=== PATIENT | male | born 1955 | race Caucasian/White ===

== ENCOUNTER → 2021-03-15 | Outpatient (CLI) | payer MEDICARE ==
[~2021-03-15] MED LIST: Calcium Acetat667 MG PO; METO25ER PO; MYCO250 PO; MYCOPHENOLATE250 MG PO; PRED5 PO; PROGRAF1 M1 PO; SIMV40 PO; TACR1 PO
== END | disposition home or self-care (01) ==
LOC: LAB 12:45 → LAB SHORT 12:45
DX: D04.39 Carcinoma in situ of skin of other parts of face (principal)
CPT/HCPCS: 88305

== ENCOUNTER → 2022-02-21 | Outpatient (CLI) | payer OTHER | END | disposition home or self-care (01) | LOC: PLD 11:23 → LAB SHORT 11:23 | DX: D04.62 Carcinoma in situ of skin of left upper limb, including shoulder (principal) | CPT/HCPCS: 88305 ==

== ENCOUNTER → 2023-06-01 | Outpatient (CLI) | payer OTHER | LOC: LAB SHORT 11:59 → LAB 11:59 | DX: D04.61 Carcinoma in situ of skin of right upper limb, including shoulder (principal) | CPT/HCPCS: 88305 ==

== ENCOUNTER → 2023-12-11 | Outpatient (CLI) | payer OTHER ==
[2023-12-11 12:51] LABS: BASOPHILS ABSOLUTE AUTO 0.03 K/mm3 (0.00-0.23); BASOPHILS PERCENT AUTO 0 % (0-2); EOSINOPHILS ABSOLUTE AUTO 0.01 K/mm3 (0.00-0.68); EOSINOPHILS PERCENT AUTO 0 % (0-6); Hematocrit 44.2 % (37.0-53.0); IMMATURE GRAN ABSOLUTE AUTO 0.11 K/mm3 (0.00-0.10); IMMATURE GRAN PERCENT AUTO 1 % (0-1); LYMPHOCYTES ABSOLUTE AUTO 0.54 K/mm3 (0.84-5.20); LYMPHOCYTES PERCENT AUTO 3 % (21-46); MONOCYTES ABSOLUTE AUTO 1.87 K/mm3 (0.16-1.47); MONOCYTES PERCENT AUTO 9 % (4-13); Mean Corpuscular HGB Conc 33.9 g/dL (31.5-36.5); Mean Corpuscular Volume 97 fL (80-100); Mean Platelet Volume 10.8 fL (9.1-12.4); NEUTROPHILS ABSOLUTE AUTO 17.54 K/mm3 (1.96-9.15); NEUTROPHILS PERCENT AUTO 87 % (41-73); Platelet Count 149 K/mm3 (150-400); RDW Coefficient Variation 13.2 % (11.7-14.2); RDW Standard Deviation 47.5 fL (35.1-46.3); Red Blood Cell Count 4.55 M/mm3 (4.30-5.90)
[2023-12-11 13:03] LABS: Albumin/Globulin Ratio 0.8 (0.8-1.8); Bilirubin, Total 6.2 mg/dL (0.1-1.0); Bun/Creatinine Ratio 12.5 (12.0-20.0); Calcium, Blood 9.4 mg/dL (8.5-10.1); Creatinine, Blood 1.04 mg/dL (0.60-1.20); Globulin, Blood 3.7 g/dL (2.2-4.0); Potassium, Blood 4.6 mmol/L (3.5-5.5); Total Protein, Blood 6.7 g/dL (6.4-8.2)
== END | disposition home or self-care (01) ==
LOC: LAB SHORT 12:47 → LAB 12:47
PROVIDERS: Family Medicine
DX: R10.84 Generalized abdominal pain (principal)
CPT/HCPCS: 80053; 83690; 84484; 85025

== ENCOUNTER 2024-02-05 10:14 | Observation (INO) | payer OTHER ==
[~2024-02-05] VITALS: Ht 177.8 cm; Wt 92.3 kg
[2024-02-05 11:53] LABS: Source, Urine Clean Catch
[2024-02-05 12:05] LABS: Appearance, Urine Cloudy (Clear); Blood, Urine 1+ (Neg); Color, Urine Amber (P-Yellow); Glucose Qualitative, Urine Neg (Neg); Ketones, Urine 1+ (Neg); Leukocyte Esterase, Urine 2+ (Neg); Nitrite, Urine Pos (Neg); Protein, Urine 2+ (Neg); Urobilinogen, Urine 3+ (Normal)
[2024-02-05] MEDS ORDERED: Ketorolac Tromethamine 15mg Vial IV ONE (12:05)
[2024-02-05] MEDS ORDERED: Ondansetron HCl 2 MG / ML 2ML Vial IV ONE (12:10)
[2024-02-05] MEDS ORDERED: HYDROmorphone HCl/Pf 1MG SYR IV ONE (12:10)
[2024-02-05 12:12] LABS: BASOPHILS ABSOLUTE AUTO 0.03 K/mm3 (0.00-0.23); BASOPHILS PERCENT AUTO 0 % (0-2); EOSINOPHILS ABSOLUTE AUTO 0.01 K/mm3 (0.00-0.68); EOSINOPHILS PERCENT AUTO 0 % (0-6); Hematocrit 42.3 % (37.0-53.0); Hemoglobin 14.4 g/dL (13.5-17.5); IMMATURE GRAN ABSOLUTE AUTO 0.08 K/mm3 (0.00-0.10); IMMATURE GRAN PERCENT AUTO 1 % (0-1); LYMPHOCYTES ABSOLUTE AUTO 0.44 K/mm3 (0.84-5.20); LYMPHOCYTES PERCENT AUTO 3 % (21-46); MONOCYTES ABSOLUTE AUTO 1.35 K/mm3 (0.16-1.47); MONOCYTES PERCENT AUTO 8 % (4-13); Mean Corpuscular Volume 97 fL (80-100); Mean Platelet Volume 10.6 fL (9.1-12.4); NEUTROPHILS ABSOLUTE AUTO 14.28 K/mm3 (1.96-9.15); NEUTROPHILS PERCENT AUTO 88 % (41-73); Platelet Count 189 K/mm3 (150-400); RDW Standard Deviation 46.5 fL (35.1-46.3); Red Blood Cell Count 4.37 M/mm3 (4.30-5.90); White Blood Cell Count 16.19 K/mm3 (4.00-11.30)
[2024-02-05 12:25] LABS: Bilirubin, Urine 3+ (Neg)
[2024-02-05 12:27] LABS: Bacteria Mod /hpf; Squamous Epithelial Cells Rare /hpf (Few)
[2024-02-05] MEDS ORDERED: NS 1,000 ML IV SCH (12:35)
[2024-02-05 12:43] LABS: Albumin/Globulin Ratio 0.9 (0.8-1.8); Bilirubin, Total 4.3 mg/dL (0.1-1.0); Bun/Creatinine Ratio 13.7 (12.0-20.0); Calcium, Blood 10.1 mg/dL (8.5-10.1); Creatinine, Blood 0.95 mg/dL (0.60-1.20); Globulin, Blood 3.3 g/dL (2.2-4.0); Potassium, Blood 4.2 mmol/L (3.5-5.5); Total Protein, Blood 6.3 g/dL (6.4-8.2)
[2024-02-05] MEDS ORDERED: FLU VACC TS2024-25(6MOS UP)/PF 45 MCG/0.5 ML SYRINGE IM SCH (16:30)
[2024-02-05] MEDS ORDERED: Lactated Ringer's 1,000 ML IV SCH (16:50)
[2024-02-05] MEDS ORDERED: Ondansetron HCl 2 MG / ML 2ML Vial IV PRN (16:50)
[2024-02-05] MEDS ORDERED: HYDROmorphone HCl/Pf 1MG SYR IV PRN (16:50)
[2024-02-05] MEDS ORDERED: CefTRIAXone Sodium 1,000 MG in NS 100 ML IV SCH (17:00)
--- NOTE | 2024-02-05 18:32 | NUR ---
ADMIT NEW ADMIT TO FLOOR AT 1740. PATIENT IS AOX4, ABLE TO AMBULATE IN ROOM. ORIENTED TO ROOM, IVF AND ABX RUNNING. DENIES PAIN AT THIS TIME. ORIENTED TO CALL LIGHT. VITALS STABLE PATIENT WILL BE NPO AT 0400 FOR SURGERY AT APPROX 1000 IN AM. WILL REPORT TO NIGHT NURSE.
[2024-02-05 18:38] VITALS: BP 113/67
[2024-02-05] MEDS ORDERED: Acetaminophen 325 MG TABLET PO PRN (18:45)
[2024-02-05] MEDS ORDERED: OxyCODONE HCL 5 MG TAB PO PRN (18:45)
[2024-02-05] MEDS ORDERED: CefOXitin Sodium 2,000 MG in NS 50 ML IV SCH (19:00)
[2024-02-05 19:56] VITALS: BP 126/65
[2024-02-05] MEDS ORDERED: Lactobacil 2-S.Thermo-Bifido 1 1 Cap PO SCH (21:00)
[2024-02-05] MEDS ORDERED: TACROLIMUS ANHYDROUS PO SCH ×2 (21:00)
[2024-02-05] MEDS ORDERED: Tacrolimus 1 MG Cap PO SCH ×2 (21:00→21:05)
[2024-02-05] MEDS ORDERED: Mycophenolate Mofetil 250 MG Cap PO SCH (21:00)
[2024-02-06] VITALS (18 sets, daily range): BP systolic 130–151; BP diastolic 63–95
--- NOTE | 2024-02-06 04:42 | NUR ---
SHIFT SUMMARY BILL WAS ALERT AND FULLY ORIENTED ON ASSESSMENT. PT DENIES PAIN AND NAUSEA AT THIS TIME. PT ANTI REJECTION MEDS ADJUSTED TO REFLECT HOME USE. PT ABLE TO AMBULATE INDEPENDENTLY. NO ACUTE EVENTS OR CHANGES TO PT CONDITION TONIGHT, PT KEPT NPO FROM MIDNIGHT. PT RESTING WITH CALL LIGHT IN REACH.
[2024-02-06] MEDS ORDERED: Mycophenolate Mofetil 250 MG Cap PO SCH (06:00)
[2024-02-06 06:32] LABS: Albumin, Blood 2.4 g/dL (3.4-5.0); Albumin/Globulin Ratio 0.8 (0.8-1.8); Bilirubin, Total 6.7 mg/dL (0.1-1.0); Bun/Creatinine Ratio 16.2 (12.0-20.0); Calcium, Blood 8.9 mg/dL (8.5-10.1); Creatinine, Blood 0.8 mg/dL (0.60-1.20); Globulin, Blood 2.9 g/dL (2.2-4.0); Potassium, Blood 4.4 mmol/L (3.5-5.5); Total Protein, Blood 5.3 g/dL (6.4-8.2)
[2024-02-06] MEDS ORDERED: Indocyanine Green 25 MG Vial IV ONE (08:00)
[2024-02-06] MEDS ORDERED: Enoxaparin 40 MG/0.4 ML SYR SC SCH (09:00)
[2024-02-06] MEDS ORDERED: Lactated Ringer's 1,000 ML IV SCH (09:15)
[2024-02-06] MEDS ORDERED: Bupivacaine 0.5% HCl 5 MG/ML 30MLVIAL ONE (09:54)
[2024-02-06] MEDS ORDERED: Etomidate 2MG / ML 10ML Vial ONE (10:09)
[2024-02-06] MEDS ORDERED: FentaNYL Citrate 50 MCG/ML 2 ML Injection ONE (10:10)
[2024-02-06] MEDS ORDERED: Ondansetron HCl 2 MG / ML 2ML Vial ONE (10:21)
[2024-02-06] MEDS ORDERED: Dexamethasone Sod Phos 10 MG/ML 1ML VIAL ONE (10:21)
[2024-02-06] MEDS ORDERED: Phenylephrine HCl 10mg/ml 1 ml Vial ONE (12:09)
[2024-02-06] MEDS ORDERED: Sugammadex Sodium 200 MG/2ML SDV (100 MG/ML) ONE (12:13)
[2024-02-06] MEDS ORDERED: propofoL 20 ML IV ONE (12:13)
[2024-02-06] MEDS ORDERED: HYDROmorphone HCl/Pf 1MG SYR ONE (12:51)
[2024-02-06] MEDS ORDERED: Polyethylene Glycol 3350 17 gm PO SCH (16:00)
--- NOTE | 2024-02-06 17:57 | NUR ---
SHIFT SUMMARY: NAKUL ARRIOLA PERFORMED THIS SHIFT, 4 INCISIONS SEALED W/GLUE AND C/D/I. PT MEDICATED PER EMAR FOR C/O PAIN. PT HAS BEEN A&Ox4, INDEPENDENT IN ROOM, ABLE TO MAKE NEEDS KNOWN. PT DENIES CP/SOB, VSS. PT MEDICATED PER EMAR FOR C/O CONSTIPATION, NO BM OF NOW. PT RESTING QUIETLY IN ROOM W/CALL LIGHT IN REACH.
[2024-02-07 00:35] VITALS: BP 144/79
[2024-02-07 04:24] VITALS: BP 129/75
[2024-02-07 04:33] LABS: BASOPHILS ABSOLUTE AUTO 0.02 K/mm3 (0.00-0.23); BASOPHILS PERCENT AUTO 0 % (0-2); EOSINOPHILS PERCENT AUTO 0 % (0-6); Hemoglobin 13.8 g/dL (13.5-17.5); IMMATURE GRAN PERCENT AUTO 1 % (0-1); LYMPHOCYTES ABSOLUTE AUTO 1.01 K/mm3 (0.84-5.20); LYMPHOCYTES PERCENT AUTO 6 % (21-46); MONOCYTES ABSOLUTE AUTO 1.41 K/mm3 (0.16-1.47); MONOCYTES PERCENT AUTO 9 % (4-13); Mean Corpuscular HGB Conc 33.7 g/dL (31.5-36.5); Mean Corpuscular Volume 98 fL (80-100); Mean Platelet Volume 11.2 fL (9.1-12.4); NEUTROPHILS ABSOLUTE AUTO 13.44 K/mm3 (1.96-9.15); NEUTROPHILS PERCENT AUTO 84 % (41-73); Platelet Count 185 K/mm3 (150-400); RDW Coefficient Variation 13.2 % (11.7-14.2); RDW Standard Deviation 47.5 fL (35.1-46.3); Red Blood Cell Count 4.18 M/mm3 (4.30-5.90); White Blood Cell Count 15.98 K/mm3 (4.00-11.30)
--- NOTE | 2024-02-07 04:46 | NUR ---
SHIFT SUMMARY POD 1 LAP FLAKO PT ABLE TO REST DURING THE SHIFT. PAIN MANAGED PER EMAR. PT IND IN THE ROOM. PT TOLERATING PO INTAKE, VOIDING WELL. PT STATES HAS NOT PASSED ANY GAS AT THIS TIME. VSS. NO OTHER CONCERNS AT THIS TIME, CALL LIGHT WITHIN REACH
[2024-02-07 05:00] LABS: Albumin, Blood 2.5 g/dL (3.4-5.0); Albumin/Globulin Ratio 0.8 (0.8-1.8); Bilirubin, Total 4.8 mg/dL (0.1-1.0); Bun/Creatinine Ratio 16.8 (12.0-20.0); Calcium, Blood 9.5 mg/dL (8.5-10.1); Creatinine, Blood 0.78 mg/dL (0.60-1.20); Globulin, Blood 3.1 g/dL (2.2-4.0); Potassium, Blood 4.6 mmol/L (3.5-5.5); Total Protein, Blood 5.6 g/dL (6.4-8.2)
[2024-02-07 07:17] VITALS: BP 133/75
[2024-02-07] MEDS ORDERED: Metoprolol Succinate 25 MG TABCR PO SCH (09:00)
[2024-02-07] MEDS ORDERED: PredniSONE 5 MG Tab PO SCH (09:00)
[2024-02-07] MEDS ORDERED: Atorvastatin 10 MG Tab PO SCH (09:00)
[2024-02-07] MEDS ORDERED: PredniSONE 1 MG Tab PO SCH (09:00)
--- NOTE | 2024-02-07 11:55 | NUR ---
dr romano in to see pt.
[2024-02-07] MEDS ORDERED: MIRALAX1714 PO (13:10)
--- NOTE | 2024-02-07 13:25 | NUR ---
discharged REVIEWED DC INSTRUCTIONS W/PT; VERBALIZED UNDERSTANDING. IV DC'D. PT LEFT UNIT IN WC W/POSSESSIONS AND DC INSTRUCTIONS IN HAND, ACCOMPANIED BY SPOUSE WHO WENT AHEAD TO PULL CAR UP TO PT ENTRANCE.
== END 2024-02-07 13:25 | disposition home or self-care (01) ==
LOC: ER 10:14 → SURS 10:15 → ER 17:29 → SURS 17:54
PROVIDERS: Physician Assistant; Surgery; ADMIT Family Medicine
PROC: 0FT44ZZ Resection of Gallbladder, Percutaneous Endoscopic Approach (ICD-10-PCS; principal; 2024-02-05)
DX: K80.10 Calculus of gallbladder with chronic cholecystitis without obstruction (principal); K85.10 Biliary acute pancreatitis without necrosis or infection; N39.0 Urinary tract infection, site not specified; I12.9 Hypertensive chronic kidney disease with stage 1 through stage 4 chronic kidney disease, or unspecified chronic kidney disease; N18.9 Chronic kidney disease, unspecified; Z94.0 Kidney transplant status; Z87.891 Personal history of nicotine dependence; Z79.899 Other long term (current) drug therapy
CPT/HCPCS: 36415; 74181; 76705; 80053; 81001; 83690; 85025; 87086; 88304; 93005; 93010; 96361; 96365; 96374; 96375; 96376; 99285-25; A9270; G0378; J0694; J0696; J1100; J1170; J1650; J2371; J2405; J2704; J3010; J7030; J7120; J7507; J7512; J7517